=== PATIENT | female | born 1985 | race Caucasian/White ===

== ENCOUNTER → 2019-08-01 | Outpatient (CLI) | payer BC | LOC: COL.RAD 10:30 | DX: D25.0 Submucous leiomyoma of uterus (principal); R19.09 Other intra-abdominal and pelvic swelling, mass and lump | CPT/HCPCS: A9585 ==

== ENCOUNTER → 2020-04-13 | Outpatient (CLI) | payer BC ==
[~2020-04-13] MED LIST: IBU600 MG PO; LEVOXYL0.125 MG PO; PERCOCET 325 MG1 TA2 PO; PRENATAL; VITAMIN D 1001000 IU PO
== END ==
LOC: DIA.ED
DX: O24.419 Gestational diabetes mellitus in pregnancy, unspecified control (principal); E03.9 Hypothyroidism, unspecified
CPT/HCPCS: G0108

== ENCOUNTER 2022-03-31 07:50 | Emergency (ER) | payer BC ==
[~2022-03-31] VITALS: Ht 172.7 cm; Wt 97.7 kg
[2022-03-31 08:03] VITALS: TEMP 97.8
[2022-03-31 08:49] LABS: BASO # 0.1 K/mm3 (0.0-0.2); BASO % 1.1 % (0.0-2.0); EOS # 0.1 K/mm3 (0.0-0.7); EOS % 1.6 % (0.0-4.0); GRAN # 5.4 K/mm3 (1.4-6.5); GRAN % 65.8 % (42.2-75.2); HEMATOCRIT 42.8 % (37.0-47.0); HEMOGLOBIN 15.2 g/dl (12.5-16.0); LYMPH # 2.1 K/mm3 (1.2-3.4); LYMPH % 25.4 % (20.0-51.0); MEAN CELL VOLUME 89 fl (80.0-100.0); MEAN CORPUSCULAR HEMOGLOBIN 32 pg (27-31); MEAN CORPUSCULAR HGB CONC 36 g/dl (33.0-37.0); MEAN PLATELET VOLUME 10.6 fl (7.4-10.4); MONO # 0.5 K/mm3 (0.1-0.6); MONO % 5.7 % (1.7-9.3); PLATELET COUNT 307 K/mm3 (130-400); RED BLOOD COUNT 4.83 M/mm3 (4.10-5.30); REDCELL DISTRIBUTION WIDTH-CV 12.2 % (11.5-14.5)
[2022-03-31 08:54] LABS: CREATININE, serum 0.72 mg/dL (0.57-1.11); POTASSIUM 3.9 mmol/L (3.5-4.5)
[2022-03-31] MEDS ORDERED: REGLAN 10MG10 MG/TAB PO (09:32)
[2022-03-31 09:38] VITALS: BP 130/90; PULSE 90
== END 2022-03-31 09:50 | disposition home or self-care (01) ==
LOC: COL.ER 07:50
PROVIDERS: Emergency Medicine
DX: R51.9 Headache, unspecified (principal); R11.10 Vomiting, unspecified; Z88.0 Allergy status to penicillin
CPT/HCPCS: J1885; J2765

== ENCOUNTER 2023-02-11 17:02 | Outpatient (CLI) | payer OTHER ==
[~2023-02-11] VITALS: Ht 172.7 cm; Wt 106.4 kg
[~2023-02-11 17:02] MED LIST changes: +REGLAN 10MG10 MG/TAB PO
--- NOTE | 2023-02-11 17:20 | NUR ---
PATIENT ARRIVES ON UNIT IN WHEELCHAIR PUSHED BY BRITTANIE IDAZ. PATIENT ORIENTED TO LABOR ROOM 4 AND ASSSITED INTO GOWN. EFM AND TOCO PLACED AND TRACING WELL. PATIENT REPORTS BLEEDING THAT FILLED HALF THE PAD WITH A CLOT THE SIZE OF A ARIS, NO LEAKING OF FLUID, CRAMPING AND DECREASED MOVEMENT. SYMPTOMS STARTING AROUND 1300 WITH CRMAPING AND CLOT AROUND 1500. PATIENT REPORTS ATTEMPTING TO DRINK SUGARY BEVERAGE, LATERAL POSITIONING ON BOTH SIDES AND OUTSIDE STIMULATION TO INCREASE MOVEMENT, PATIENT STATES THESE MEASURES DID NOT HELP INCREASE MOVEMENT. PATIENT REPORTS FEELING MORE MOVEMENT SINCE ARRIVAL TO UNIT.
--- NOTE | 2023-02-11 18:10 | NUR ---
1758- PATIENT ASSISTED TO RESTROOM AT THIS TIME. 1800- EFM AND TOCO PLUGGED BACK IN. DIFFICULTY TRACING FHR TRACING. EFM ADJUSTED AT THIS TIME BY RN.
[2023-02-11 18:15] VITALS: BP 129/84; PULSE 74; TEMP 97.6
--- NOTE | 2023-02-11 18:20 | NUR ---
This nurse received report from Ness Davis RN. Pt is here for decreased FM and bleeding. CBC, CMP, and a clean catch UA ordered pt. Lab has already been contacted. This nurse assumes care of pt from Ness Davis RN.
[2023-02-11 18:30] LABS: COLLECTION METHOD CLEAN CATCH
[2023-02-11 18:34] LABS: HEMATOCRIT 37.2 % (37.0-47.0); HEMOGLOBIN 13.6 g/dl (12.5-16.0); MEAN CELL VOLUME 88 fl (80.0-100.0); MEAN CORPUSCULAR HEMOGLOBIN 32 pg (27-31); MEAN CORPUSCULAR HGB CONC 37 g/dl (33.0-37.0); MEAN PLATELET VOLUME 11.1 fl (7.4-10.4); PLATELET COUNT 194 K/mm3 (130-400); RED BLOOD COUNT 4.21 M/mm3 (4.10-5.30); REDCELL DISTRIBUTION WIDTH-CV 12.8 % (11.5-14.5)
[2023-02-11 18:43] LABS: MUCOUS Present (NOT PRESENT); SQUAMOUS EPITHELIAL 0-2 /hpf (0-10); URINE BACTERIA Occasional /hpf (NONE SEEN); URINE RBC 0-2 /hpf (0-2)
[2023-02-11 18:44] LABS: URINE APPEARANCE Turbid (CLEAR/HAZY); URINE BLOOD 2+ (NEGATIVE); URINE COLOR Yellow (YELLOW); URINE GLUCOSE Negative (NEGATIVE); URINE KETONE Negative (NEGATIVE); URINE NITRATE Negative (NEGATIVE); URINE PROTEIN(semi-quant) Negative (NEGATIVE); URINE UROBILINOGEN 0.2 (NEGATIVE)
[2023-02-11 18:52] LABS: ALBUMIN 2.6 gm/dL (3.5-5.0); BILIRUBIN,TOTAL 0.3 mg/dL (0.2-1.2); CALCIUM 8.5 mg/dL (8.4-10.2); CREATININE, serum 0.63 mg/dL (0.57-1.11); POTASSIUM 3.8 mmol/L (3.5-4.5); TOTAL PROTEIN 6.5 gm/dL (6.2-8.1)
[2023-02-11 18:55] VITALS: PULSE 81; TEMP 98
[2023-02-11] MEDS ORDERED: CELEXA10 MG PO (19:05)
[2023-02-11] MEDS ORDERED: NORMODYNE300 MG PO (19:05)
[2023-02-11] MEDS ORDERED: ASPIRIN 81M81 MG/TA2 PO (19:06)
[2023-02-11] MEDS ORDERED: PRILOTC (19:07)
[2023-02-11] MEDS ORDERED: ZYRTEC5 MG PO (19:07)
[2023-02-11] MEDS ORDERED: VITAMIN D 400400 IU PO (19:07)
[2023-02-11] MEDS ORDERED: SUPRAX200 MG (19:09)
[2023-02-11 19:22] LABS: EOSINOPHIL 4 % (0-4); LYMPHOCYTE 29 % (20.0-51.0); NEUTROPHILS 60 % (42.0-75.2)
--- NOTE | 2023-02-11 19:22 | NUR ---
POC for DC discussed with pt and pt spouse. Pt educated on FKC, ligament pain, and SVE spotting. Pt educated to return to unit if leaking/gushing of fluids, consistent and persistent contractions, and/or vaginal bleeding occurs. Pt educated to keep all scheduled appointments. Pt educated to take Tylenol/Benadryl for pain and sleep management, per bottle instructions. Health summary, DC paperwork, and Early Labor/Discomforts of packet handed to pt. Questions, concerns, and needs encouraged. Pt verbalized understanding and agreement of POC with "no" additional questions, concerns, or needs. Pt ambulated off unit with DC paperwork(s) in hand, accompanied by pt spouse, at 1922.
[2023-02-11 19:23] LABS: PLATELET ESTIMATE NORMAL (NORMAL)
--- NOTE | 2023-02-11 19:55 | NUR ---
182: This nurse at pt bedside for pt introductions and POC discussion. FHR tracing intermittently. This nurse at pt bedside palpating pt abdomen, with consent and explanation, attempting to readjust external monitors x2. Questions, concerns, and needs encouraged. Pt verbalized understanding and agreement of POC with "no" questions, concerns, or needs. 1843: SVE, with pt consent and explanation, C/T/H. 1851: This nurse notifies Dr. Vitale, via phonecall, of pt progress and update. SVE unchanged, lab results read to Dr. Vitale. See physician notification for further detail. 1853: Pt off external monitors x2 and changed into civilian clothes.
== END 2023-02-11 19:22 ==
LOC: ZCOL.LAB 17:02 → LDRO 17:02
PROVIDERS: Obstetrics & Gynecology
DX: Z34.93 Encounter for supervision of normal pregnancy, unspecified, third trimester (principal); Z3A.35 35 weeks gestation of pregnancy

== ENCOUNTER 2023-02-20 09:32 | Inpatient (IN) | payer OTHER ==
[2023-02-20] VITALS (30 sets, daily range): BP systolic 97–143; BP diastolic 39–91; PULSE 69–113; TEMP 97.5–98.2
[~2023-02-20] VITALS: Ht 172.7 cm; Wt 106.8 kg
[~2023-02-20 09:32] MED LIST changes: +ASPIRIN 81M81 MG/TA2 PO; +CELEXA10 MG PO; +NORMODYNE300 MG PO; +PRILOTC; +SUPRAX200 MG; +VITAMIN D 400400 IU PO; +ZYRTEC5 MG PO
[2023-02-20 10:22] LABS: BASO % 0.2 % (0.0-2.0); EOS % 0.3 % (0.0-4.0); GRAN # 8.4 K/mm3 (1.4-6.5); GRAN % 82.1 % (42.2-75.2); HEMATOCRIT 39.8 % (37.0-47.0); HEMOGLOBIN 14.2 g/dl (12.5-16.0); LYMPH # 1.1 K/mm3 (1.2-3.4); LYMPH % 10.7 % (20.0-51.0); MEAN CELL VOLUME 90 fl (80.0-100.0); MEAN CORPUSCULAR HEMOGLOBIN 32 pg (27-31); MEAN CORPUSCULAR HGB CONC 36 g/dl (33.0-37.0); MEAN PLATELET VOLUME 11.2 fl (7.4-10.4); MONO # 0.7 K/mm3 (0.1-0.6); MONO % 6.3 % (1.7-9.3); PLATELET COUNT 225 K/mm3 (130-400); RED BLOOD COUNT 4.43 M/mm3 (4.10-5.30); REDCELL DISTRIBUTION WIDTH-CV 12.6 % (11.5-14.5)
[2023-02-20 10:28] LABS: MUCOUS Present (NOT PRESENT); SQUAMOUS EPITHELIAL >50 /hpf (0-10); URINE BACTERIA Many /hpf (NONE SEEN)
[2023-02-20 10:31] LABS: COLLECTION METHOD CLEAN CATCH; PH 5.5 (5.0-8.5); URINE APPEARANCE Turbid (CLEAR/HAZY); URINE COLOR Amber (YELLOW); URINE GLUCOSE Negative (NEGATIVE); URINE KETONE 3+ (NEGATIVE); URINE NITRATE Positive (NEGATIVE); URINE PROTEIN(semi-quant) 1+ (NEGATIVE)
[2023-02-20 10:32] LABS: URINE BLOOD 2+ (NEGATIVE)
[2023-02-20 10:41] LABS: BILIRUBIN,TOTAL 0.7 mg/dL (0.2-1.2); CALCIUM 8.5 mg/dL (8.4-10.2); CREATININE, serum 0.62 mg/dL (0.57-1.11); TOTAL PROTEIN 6.6 gm/dL (6.2-8.1)
[2023-02-20 13:32] LABS: AMYLASE 56 U/L (25-125); LIPASE 30 U/L (8-78)
[2023-02-21 03:30] VITALS: BP 135/89; PULSE 78; TEMP 97.6
[2023-02-21 06:27] LABS: BASO % 0.1 % (0.0-2.0); GRAN # 13.1 K/mm3 (1.4-6.5); GRAN % 87.2 % (42.2-75.2); HEMATOCRIT 38.4 % (37.0-47.0); HEMOGLOBIN 13.4 g/dl (12.5-16.0); LYMPH # 1.1 K/mm3 (1.2-3.4); LYMPH % 7.3 % (20.0-51.0); MEAN CELL VOLUME 92 fl (80.0-100.0); MEAN CORPUSCULAR HEMOGLOBIN 32 pg (27-31); MEAN CORPUSCULAR HGB CONC 35 g/dl (33.0-37.0); MEAN PLATELET VOLUME 11.1 fl (7.4-10.4); MONO # 0.7 K/mm3 (0.1-0.6); MONO % 4.7 % (1.7-9.3); PLATELET COUNT 213 K/mm3 (130-400); RED BLOOD COUNT 4.19 M/mm3 (4.10-5.30); REDCELL DISTRIBUTION WIDTH-CV 12.8 % (11.5-14.5)
[2023-02-21 06:43] LABS: ALBUMIN 2.7 gm/dL (3.5-5.0); BILIRUBIN,TOTAL 0.4 mg/dL (0.2-1.2); CALCIUM 8.5 mg/dL (8.4-10.2); CREATININE, serum 0.67 mg/dL (0.57-1.11); POTASSIUM 4.4 mmol/L (3.5-4.5)
[2023-02-21 07:40] VITALS: BP 142/94; PULSE 74; TEMP 97.7
[2023-02-21 16:30] VITALS: BP 121/82; PULSE 91; TEMP 97.9
[2023-02-21 21:00] VITALS: BP 116/74; PULSE 85; TEMP 98
[2023-02-22] VITALS: BP 112/78; PULSE 92; TEMP 97.8
[2023-02-22 08:45] VITALS: BP 117/82; PULSE 91; TEMP 97.7
[2023-02-22] MEDS ORDERED: MACROBID 1100 MG/CAP PO (10:08)
[2023-02-22] MEDS ORDERED: TYLENOL 500MG500 MG PO (10:09)
[2023-02-22] MEDS ORDERED: IBU800 M1 PO (10:09)
[2023-02-22] MEDS ORDERED: ROXICODONE 55 MG/TAB PO (10:09)
[2023-02-22 17:15] VITALS: BP 127/90; PULSE 91; TEMP 97.3
[2023-02-22 21:00] VITALS: BP 111/81; PULSE 96; TEMP 98.2
[2023-02-23 08:00] VITALS: BP 119/87; PULSE 77; TEMP 97.3
== END 2023-02-23 13:58 | disposition home or self-care (01) | DRG 787 ==
LOC: LDRO 09:32 → OB 14:55 → LDR 14:55 → OB 18:50
PROVIDERS: Obstetrics & Gynecology; ADMIT Obstetrics & Gynecology
PROC: 10D00Z1 Extraction of Products of Conception, Low, Open Approach (ICD-10-PCS; principal; 2023-02-20)
DX: O10.92 Unspecified pre-existing hypertension complicating childbirth (principal); N39.0 Urinary tract infection, site not specified; O23.43 Unspecified infection of urinary tract in pregnancy, third trimester; Z37.0 Single live birth; O40.3XX0 Polyhydramnios, third trimester, not applicable or unspecified; O32.1XX0 Maternal care for breech presentation, not applicable or unspecified; O24.420 Gestational diabetes mellitus in childbirth, diet controlled; O34.211 Maternal care for low transverse scar from previous cesarean delivery; O11.4 Pre-existing hypertension with pre-eclampsia, complicating childbirth; O99.284 Endocrine, nutritional and metabolic diseases complicating childbirth; E03.8 Other specified hypothyroidism; E28.2 Polycystic ovarian syndrome; O99.892 Other specified diseases and conditions complicating childbirth; N80.9 Endometriosis, unspecified; O99.62 Diseases of the digestive system complicating childbirth; K21.9 Gastro-esophageal reflux disease without esophagitis; O99.214 Obesity complicating childbirth; Z3A.36 36 weeks gestation of pregnancy; Z79.890 Hormone replacement therapy; Z86.16 Personal history of COVID-19; Z88.0 Allergy status to penicillin
CPT/HCPCS: J0171; J1100; J1885; J2370; J2405; J2590